=== PATIENT | female | born 1975 | race Caucasian/White ===

== ENCOUNTER → 2016-11-09 | Outpatient (CLI) | payer OTHER ==
[2016-11-09 15:44] VITALS: BP 139/79; PULSE 85; TEMP 97.9; BMI 32.2
--- NOTE | 2016-11-09 16:20 | P.HPBAR ---
Bariatric H&P - History & Physicial H&P Date: 11/09/16 History & Physicial: Visit/CC: lap band refill Patient initial contact: Initial weight: Initial weight in pounds: Height: 4 ft 11.75 in Initial BMI: Last weight: Current weight: 74.208 kg Current weight in pounds: 163.60 Current BMI: 32.2 [place] body weight (based on NIH guidelines): 44.792 kg Excess body weight loss: The patient is a 40 year-old F who presents for Bariatric Assessment. Patient has safer LAP-BAND follow-up. She has not been seen in several years. She has complaints of GERD. She is actually scheduled to go to [facility] in 2 weeks. Past Medical History Past Medical History: Thyroid Disorder History of Any Multi-Drug Resistant Organisms: None Reported Past Surgical History: Bariatric Surgery Additional Past Surgical History / Comment(s): lap band placed June [id number], Past Anesthesia/Blood Transfusion Reactions: No Reported Reaction Additional Past Anesthesia/Blood Transfusion Reaction / Comm: No transfusions reported as of 11/09/16 Past Psychological History: No Psychological Hx Reported Smoking Status: Never smoker Past Alcohol Use History: Occasional Additional Past Alcohol Use History / Comment(s): once/week at most Past Drug Use History: None Reported - Past Family History Father Family Medical History: Coronary Artery Disease (CAD), Diabetes Mellitus Additional Family Medical History / Comment(s): type 2 DM, cardiac stent placement Mother Family Medical History: Hypertension Surgical - Exam Vital Signs Temp Pulse BP 97.9 F 85 139/79 11/09/16 15:35 11/09/16 15:35 11/09/16 15:35 - General well developed, no distress - Eyes PERRL - ENT normal pinna - Respiratory normal expansion - Cardiovascular Rhythm: regular - Abdomen Abdomen: soft, non tender Bariatric Assessment & Plan Plan: The patient's LAP-BAND was empty. She had 9.5 mL emptied from her LAP-BAND. She'll follow-up in several weeks after her trip to [facility]. She had no complaints of dysphagia after her band was empty. Bariatric Checklist Checklist: Plan: Checklist: EGD: 1. Hiatal hernia: 2. H. Pylori: HgbA1c: Vitamin D: Smoking: Never smoker Primary care physician referral: Psychiatry clearance: Cardiology clearance: Sleep study: Diet journal: VTE risk score: VTE risk level: Rehab needs at discharge:
== END | disposition home or self-care (01) ==
LOC: BARWHC3 14:41
PROVIDERS: ATTEND Surgery
DX: Z48.815 Encounter for surgical aftercare following surgery on the digestive system (principal); Z98.84 Bariatric surgery status; K21.9 Gastro-esophageal reflux disease without esophagitis; Z68.32 Body mass index [BMI] 32.0-32.9, adult
CPT/HCPCS: 99212

== ENCOUNTER → 2016-12-28 | Outpatient (CLI) | payer OTHER ==
[2016-12-28 15:45] VITALS: BP 128/80; PULSE 94; RESP 14; TEMP 98.5; BMI 31.9
--- NOTE | 2016-12-28 15:54 | P.HPBAR ---
Bariatric H&P - History & Physicial H&P Date: 12/28/16 History & Physicial: Visit/CC: band fill Patient initial contact: Initial weight: 102.512 kg Initial weight in pounds: 226.00 Height: 5 ft 1 in Initial BMI: 42.7 Last weight: Current weight: 76.702 kg Current weight in pounds: 169.10 Current BMI: 31.9 [place] body weight (based on NIH guidelines): 47.627 kg Excess body weight loss: 47.0% The patient is a 41 year-old F who presents for Bariatric Assessment. The patient is requesting a fill. She has gained 6 pounds since her LAP-BAND was emptied. She has recently traveled to [place]. Review of Systems Constitutional: Reports as per HPI Past Medical History Past Medical History: Thyroid Disorder History of Any Multi-Drug Resistant Organisms: None Reported Past Surgical History: Bariatric Surgery Additional Past Surgical History / Comment(s): lap band placed June 20112011, Past Anesthesia/Blood Transfusion Reactions: No Reported Reaction Additional Past Anesthesia/Blood Transfusion Reaction / Comm: No transfusions reported as of 11/09/16 Past Psychological History: No Psychological Hx Reported Smoking Status: Never smoker Past Alcohol Use History: Occasional Additional Past Alcohol Use History / Comment(s): once/week at most Past Drug Use History: None Reported - Past Family History Father Family Medical History: Coronary Artery Disease (CAD), Diabetes Mellitus Additional Family Medical History / Comment(s): type 2 DM, cardiac stent placement Mother Family Medical History: Hypertension Surgical - Exam Vital Signs Temp Pulse Resp BP 98.5 F 94 14 128/80 12/28/16 15:35 12/28/16 15:35 12/28/16 15:35 12/28/16 15:35 - General well developed, no distress - Eyes PERRL - ENT normal pinna - Neck no masses - Respiratory normal expansion - Cardiovascular Rhythm: regular - Abdomen Abdomen: soft, non tender Bariatric Assessment & Plan Plan: The patient's lap band was adjusted. She had 5 mL added to the band. She will follow-up in one month. Bariatric Checklist Checklist: Plan: Checklist: EGD: 1. Hiatal hernia: 2. H. Pylori: HgbA1c: Vitamin D: Smoking: Never smoker Primary care physician referral: madison burden Psychiatry clearance: Cardiology clearance: Sleep study: Diet journal: VTE risk score: VTE risk level: Rehab needs at discharge:
== END | disposition home or self-care (01) ==
LOC: BARWHC3 14:56
PROVIDERS: ATTEND Surgery
DX: Z48.815 Encounter for surgical aftercare following surgery on the digestive system (principal); Z98.84 Bariatric surgery status
CPT/HCPCS: 99212

== ENCOUNTER → 2017-05-26 | Outpatient (CLI) | payer OTHER ==
--- NOTE | 2017-05-27 09:58 | ECHOS ---
STRESS ECHOCARDIOGRAM INDICATIONS: Chest pain. MEDICATIONS:: Synthroid BASELINE HEART RATE: 86 BASELINE BLOOD PRESSURE: 104/58 MAXIMUM HEART RATE: 178 MAXIMUM BLOOD PRESSURE: 151/75 85% MPHR: 151 100% MPHR: 178 METS: 9.7 MAXIMUM STAGE REACHED: 3 TOTAL EXERCISE TIME: 8:00 CLINICAL INFORMATION: A 41-year-old female referred by Dr. Chairez for an exercise stress echo. History of chest discomfort. Baseline heart rate is 86 beats per minute. Baseline blood pressure 104/58 mmHg. Baseline 12-lead ECG shows normal sinus rhythm with subtle early repolarization abnormality in the high lateral leads. Patient exercised on a Babar protocol for 8 minutes achieving a peak heart rate of 178 beats per minute. Blood pressure response was normal. There was no definite ECG evidence for ischemia. Occasional premature beats are noted, both supraventricular and ventricular. No nonsustained or sustained arrhythmias. A baseline 2D echo showed normal LV systolic function without segmental wall motion abnormalities. At peak exercise, there was excellent augmentation of overall LV contractility without development of any wall motion abnormalities. At recovery lesion LV systolic function was normal. IMPRESSION: 1. Average exercise capacity. 2. No ECG or echocardiographic evidence of ischemia. MMODL / IJN: [id number] /
== END | disposition home or self-care (01) ==
LOC: RADNMMAIN 08:58
PROVIDERS: ATTEND Family Medicine
DX: R07.2 Precordial pain (principal)
CPT/HCPCS: 93017; 93350

== ENCOUNTER → 2018-09-12 | Outpatient (CLI) | payer BC, OTHER ==
[2018-09-12 16:05] VITALS: BP 125/90; PULSE 109; RESP 16; TEMP 99.1; BMI 38.1
--- NOTE | 2018-09-12 16:35 | P.HPBAR ---
Bariatric H&P - History & Physicial H&P Date: 09/12/18 History & Physicial: Visit/CC: band adj Patient initial contact: Initial weight: 102.512 kg Initial weight in pounds: 226.00 Height: 5 ft 1 in Initial BMI: 42.7 Last weight: Current weight: 91.626 kg Current weight in pounds: 202.00 Current BMI: 38.1 [place] body weight (based on NIH guidelines): 47.627 kg Excess body weight loss: 19.8% The patient is a 42 year-old F who presents for Bariatric Assessment. Patient resents today for lab band follow up. She's not been seen almost 2 years. She has diminished restriction. She is requesting a fill. Past Medical History Past Medical History: Thyroid Disorder History of Any Multi-Drug Resistant Organisms: None Reported Past Surgical History: Bariatric Surgery Additional Past Surgical History / Comment(s): lap band placed June 20112011, Past Anesthesia/Blood Transfusion Reactions: No Reported Reaction Additional Past Anesthesia/Blood Transfusion Reaction / Comm: No transfusions reported as of 11/09/16 Past Psychological History: No Psychological Hx Reported Smoking Status: Never smoker Past Alcohol Use History: Occasional Additional Past Alcohol Use History / Comment(s): once/week at most Past Drug Use History: None Reported - Past Family History Father Family Medical History: Coronary Artery Disease (CAD), Diabetes Mellitus Additional Family Medical History / Comment(s): type 2 DM, cardiac stent placement Mother Family Medical History: Hypertension Surgical - Exam Vital Signs Temp Pulse Resp BP 99.1 F 109 H 16 125/90 09/12/18 15:53 09/12/18 15:53 09/12/18 15:53 09/12/18 15:53 - General well developed, well nourished, no distress - Eyes PERRL - ENT normal pinna - Neck no masses - Respiratory normal expansion - Abdomen Abdomen: soft, non tender Bariatric Assessment & Plan Plan: The patient LAP-BAND was adjusted. She had 2 mL added to the band. She currently has 7 mL in the band. She will follow-up in 8 weeks. Bariatric Checklist Checklist: Plan: Checklist: EGD: 1. Hiatal hernia: 2. H. Pylori: HgbA1c: Vitamin D: Smoking: Never smoker Primary care physician referral: madison burden Psychiatry clearance: Cardiology clearance: Sleep study: Diet journal: VTE risk score: VTE risk level: Rehab needs at discharge:
== END | disposition home or self-care (01) ==
LOC: BARWHC3 15:05
PROVIDERS: ATTEND Surgery
DX: Z48.815 Encounter for surgical aftercare following surgery on the digestive system (principal); Z98.84 Bariatric surgery status
CPT/HCPCS: 99212

== ENCOUNTER → 2018-10-18 | Outpatient (CLI) | payer BC, OTHER ==
--- NOTE | 2018-10-18 12:51 | MM ---
Reason for exam: screening (asymptomatic). Last mammogram was performed 2 years and 11 months ago. History: Patient is nulliparous. Physical Findings: A clinical breast exam by your physician is recommended on an annual basis and results should be correlated with mammographic findings. MG Screening Mammo w CAD Bilateral CC and MLO view(s) were taken. Prior study comparison: November 18, 2015, bilateral MG screening mammo w CAD. The breast tissue is heterogeneously dense. This may lower the sensitivity of mammography. No significant changes when compared with prior studies. ASSESSMENT: Negative, BI-RAD 1 RECOMMENDATION: Routine screening mammogram of both breasts in 1 year.
== END | disposition home or self-care (01) ==
LOC: RADMAMWWP 06:48
PROVIDERS: ATTEND Family Medicine
DX: Z12.31 Encounter for screening mammogram for malignant neoplasm of breast (principal)
CPT/HCPCS: 77067

== ENCOUNTER → 2018-10-24 | Outpatient (CLI) | payer BC, OTHER ==
[2018-10-24 13:59] VITALS: BMI 37.0
[2018-10-24 14:16] VITALS: BP 136/91; PULSE 112; TEMP 98.6
--- NOTE | 2018-10-24 14:30 | P.HPBAR ---
Bariatric H&P - History & Physicial H&P Date: 10/24/18 History & Physicial: Visit/CC: band adj Patient initial contact: Initial weight: 102.512 kg Initial weight in pounds: 226.00 Height: 5 ft 1 in Initial BMI: 42.7 Last weight: Current weight: 88.904 kg Current weight in pounds: 196.00 Current BMI: 37.0 [place] body weight (based on NIH guidelines): 47.627 kg Excess body weight loss: 24.7% The patient is a 42 year-old F who presents for Bariatric Assessment. Of her LAP-BAND. She currently feels hungry. He has lost 6 pounds since her last visit. Past Medical History Past Medical History: Thyroid Disorder History of Any Multi-Drug Resistant Organisms: None Reported Past Surgical History: Bariatric Surgery Additional Past Surgical History / Comment(s): lap band placed June [id number], Past Anesthesia/Blood Transfusion Reactions: No Reported Reaction Additional Past Anesthesia/Blood Transfusion Reaction / Comm: No transfusions reported as of 11/09/16 Past Psychological History: No Psychological Hx Reported Smoking Status: Never smoker Past Alcohol Use History: Occasional Additional Past Alcohol Use History / Comment(s): once/week at most Past Drug Use History: None Reported - Past Family History Father Family Medical History: Coronary Artery Disease (CAD), Diabetes Mellitus Additional Family Medical History / Comment(s): type 2 DM, cardiac stent placement Mother Family Medical History: Hypertension Surgical - Exam Vital Signs Temp 98.0 F 10/24/18 13:56 - General well developed, well nourished, no distress - Eyes PERRL - ENT normal pinna - Neck no masses - Respiratory normal expansion - Cardiovascular Rhythm: regular - Abdomen Abdomen: soft, non tender Bariatric Assessment & Plan Plan: Patient's lap band was adjusted. She had 1 mL added to her band. She currently has 8 mL in the band. She was able to water without difficulty. She' ll follow-up in 4 weeks. Bariatric Checklist Checklist: Plan: Checklist: EGD: 1. Hiatal hernia: 2. H. Pylori: HgbA1c: Vitamin D: Smoking: Never smoker Primary care physician referral: madison burden Psychiatry clearance: Cardiology clearance: Sleep study: Diet journal: VTE risk score: VTE risk level: Rehab needs at discharge:
== END ==
LOC: BARWHC3 13:45
PROVIDERS: ATTEND Surgery
DX: Z48.815 Encounter for surgical aftercare following surgery on the digestive system (principal); Z98.84 Bariatric surgery status
CPT/HCPCS: 99212

== ENCOUNTER → 2019-01-16 | Outpatient (CLI) | payer BC, OTHER ==
[2019-01-16 16:30] VITALS: BP 132/90; PULSE 104; RESP 16; TEMP 98.3; BMI 36.1
--- NOTE | 2019-01-30 14:17 | P.HPBAR ---
Bariatric H&P - History & Physicial H&P Date: 01/16/19 History & Physicial: Visit/CC: Band Adj Patient initial contact: Initial weight: 102.512 kg Initial weight in pounds: 226.00 Height: 5 ft 1 in Initial BMI: 42.7 Last weight: Current weight: 86.636 kg Current weight in pounds: 191.00 Current BMI: 36.1 [place] body weight (based on NIH guidelines): 47.627 kg Excess body weight loss: 28.9% The patient is a 43 year-old F who presents for Bariatric Assessment. The patient is requesting a fill of her LAP-BAND. She currently feels hungry. Past Medical History Past Medical History: Thyroid Disorder History of Any Multi-Drug Resistant Organisms: None Reported Past Surgical History: Bariatric Surgery Additional Past Surgical History / Comment(s): lap band placed June 2011, Past Anesthesia/Blood Transfusion Reactions: No Reported Reaction Additional Past Anesthesia/Blood Transfusion Reaction / Comm: No transfusions reported as of 11/09/16 Smoking Status: Never smoker - Past Family History Father Family Medical History: Coronary Artery Disease (CAD), Diabetes Mellitus Additional Family Medical History / Comment(s): type 2 DM, cardiac stent placement Mother Family Medical History: Hypertension Surgical - Exam Vital Signs Temp Pulse Resp BP 98.3 F 104 H 16 132/90 01/16/19 16:24 01/16/19 16:24 01/16/19 16:24 01/16/19 16:24 - General well developed, well nourished, no distress - ENT normal pinna - Abdomen Abdomen: soft, non tender Bariatric Assessment & Plan Plan: Patient LAP-BAND was adjusted. She had 0.5 mL added to her LAP-BAND. She currently has a 0.5 mL in the band. She'll follow-up in 2 months. Bariatric Checklist Checklist: Plan: Checklist: EGD: 1. Hiatal hernia: 2. H. Pylori: HgbA1c: Vitamin D: Smoking: Never smoker Primary care physician referral: madison burden Psychiatry clearance: Cardiology clearance: Sleep study: Diet journal: VTE risk score: VTE risk level: Rehab needs at discharge:
== END | disposition home or self-care (01) ==
LOC: BARWHC3 16:01
PROVIDERS: ATTEND Surgery
DX: Z46.51 Encounter for fitting and adjustment of gastric lap band (principal)
CPT/HCPCS: 99212

== ENCOUNTER → 2019-02-13 | Outpatient (CLI) | payer BC, OTHER ==
[2019-02-13 14:29] VITALS: BP 119/96; PULSE 95; TEMP 98.9; BMI 36.1
--- NOTE | 2019-02-13 16:03 | P.HPBAR ---
Bariatric H&P - History & Physicial H&P Date: 02/13/19 History & Physicial: Visit/CC: sleeve f/u Patient initial contact: Initial weight: 102.512 kg Initial weight in pounds: 226.00 Height: 5 ft 1 in Initial BMI: 42.7 Last weight: Current weight: 86.682 kg Current weight in pounds: 191.10 Current BMI: 36.1 [place] body weight (based on NIH guidelines): 47.627 kg Excess body weight loss: 28.8% The patient is a 43 year-old F who presents for Bariatric Assessment. The patient presents today for sleeve gastrectomy follow-up. She states she's had some mild GERD. Past Medical History Past Medical History: Thyroid Disorder History of Any Multi-Drug Resistant Organisms: None Reported Past Surgical History: Bariatric Surgery Additional Past Surgical History / Comment(s): lap band placed June 2011, Past Anesthesia/Blood Transfusion Reactions: No Reported Reaction Additional Past Anesthesia/Blood Transfusion Reaction / Comm: No transfusions reported as of 11/09/16 Smoking Status: Never smoker - Past Family History Father Family Medical History: Coronary Artery Disease (CAD), Diabetes Mellitus Additional Family Medical History / Comment(s): type 2 DM, cardiac stent placement Mother Family Medical History: Hypertension Surgical - Exam Vital Signs Temp Pulse BP 98.9 F 95 119/96 02/13/19 13:59 02/13/19 13:59 02/13/19 13:59 - General well developed, well nourished, no distress, moderate distress - Eyes PERRL, normal ocular movement - Abdomen Abdomen: soft, non tender Bariatric Assessment & Plan Plan: Patient maintained excellent weight loss. Her GERD we'll be treated with Prilosec. She will follow-up in 6 weeks. Bariatric Checklist Checklist: Plan: Checklist: EGD: 1. Hiatal hernia: 2. H. Pylori: HgbA1c: Vitamin D: Smoking: Never smoker Primary care physician referral: madison burden Psychiatry clearance: Cardiology clearance: Sleep study: Diet journal: VTE risk score: VTE risk level: Rehab needs at discharge:
== END | disposition home or self-care (01) ==
LOC: BARWHC3 13:21
PROVIDERS: ATTEND Surgery
DX: Z09 Encounter for follow-up examination after completed treatment for conditions other than malignant neoplasm (principal); K21.9 Gastro-esophageal reflux disease without esophagitis; Z98.84 Bariatric surgery status
CPT/HCPCS: 99211

== ENCOUNTER → 2020-03-25 | Outpatient (CLI) | payer BC, OTHER ==
[2020-03-25 13:07] VITALS: BP 139/104; PULSE 75; RESP 16; TEMP 98.2; BMI 34.0
--- NOTE | 2020-03-25 13:47 | P.HPBAR ---
Bariatric H&P - History & Physicial H&P Date: 03/25/20 History & Physicial: Visit/CC: Band f/u Patient initial contact: Initial weight: 102.512 kg Initial weight in pounds: 226.00 Height: 5 ft 1 in Initial BMI: 42.7 Last weight: Current weight: 81.76 kg Current weight in pounds: 180.25 Current BMI: 34.0 [place] body weight (based on NIH guidelines): 47.627 kg Excess body weight loss: 37.8% The patient is a 44 year-old F who presents for Bariatric Assessment. Patient presents today for lab band follow. She has some complaints of right quadrant epigastric pain. She denies any dysphagia or GERD. Past Medical History Past Medical History: Thyroid Disorder History of Any Multi-Drug Resistant Organisms: None Reported Past Surgical History: Bariatric Surgery Additional Past Surgical History / Comment(s): lap band placed June 2011, Past Anesthesia/Blood Transfusion Reactions: No Reported Reaction Additional Past Anesthesia/Blood Transfusion Reaction / Comm: No transfusions reported as of 11/09/16 Past Psychological History: No Psychological Hx Reported Smoking Status: Unknown if ever smoked Past Alcohol Use History: Occasional Additional Past Alcohol Use History / Comment(s): once/week at most Past Drug Use History: None Reported - Past Family History Father Family Medical History: Coronary Artery Disease (CAD), Diabetes Mellitus Additional Family Medical History / Comment(s): type 2 DM, cardiac stent placement Mother Family Medical History: Hypertension Surgical - Exam Vital Signs Temp Pulse Resp BP 98.2 F 75 16 139/104 03/25/20 13:05 03/25/20 13:05 03/25/20 13:05 03/25/20 13:05 - General well developed, well nourished, no distress - Eyes PERRL - ENT normal pinna - Neck no masses - Respiratory normal expansion - Cardiovascular Rhythm: regular - Abdomen Abdomen: soft, non tender Bariatric Assessment & Plan Plan: Right quadrant epigastric pain. Patient be scheduled for EGD tonight for possible gastritis or esophagitis. She also scheduled for an ultrasound to cholchanning. HIDA scan with ejection fraction has also been ordered. She'll follow-up in 4 weeks. Bariatric Checklist Checklist: Plan: Checklist: EGD: 1. Hiatal hernia: 2. H. Pylori: HgbA1c: Vitamin D: Smoking: Never smoker Primary care physician referral: madison burden Psychiatry clearance: Cardiology clearance: Sleep study: Diet journal: VTE risk score: VTE risk level: Rehab needs at discharge:
== END | disposition home or self-care (01) ==
LOC: BARWHC3 12:47
PROVIDERS: ATTEND Surgery
DX: Z48.815 Encounter for surgical aftercare following surgery on the digestive system (principal)
CPT/HCPCS: 99211

== ENCOUNTER → 2020-04-17 | Outpatient (CLI) | payer BC, OTHER ==
--- NOTE | 2020-04-19 09:21 | MM ---
Reason for exam: screening (asymptomatic). Last mammogram was performed 1 year and 6 months ago. History: Patient is nulliparous. Physical Findings: A clinical breast exam by your physician is recommended on an annual basis and results should be correlated with mammographic findings. MG 3D Screening Mammo W/Cad Bilateral CC and MLO view(s) were taken. Prior study comparison: October 18, 2018, bilateral MG screening mammo w CAD. November 18, 2015, bilateral MG screening mammo w CAD. The breast tissue is heterogeneously dense. This may lower the sensitivity of mammography. New dystrophic calcifications right upper outer quadrant. No significant changes when compared with prior studies. ASSESSMENT: Benign, BI-RAD 2 RECOMMENDATION: Routine screening mammogram of both breasts in 1 year.
== END | disposition home or self-care (01) ==
LOC: RADMAMWWP 15:43
PROVIDERS: ATTEND Family Medicine
DX: Z12.31 Encounter for screening mammogram for malignant neoplasm of breast (principal)
CPT/HCPCS: 77063; 77067

== ENCOUNTER 2020-04-18 09:23 | Day surgery (SDC) | payer BC, OTHER ==
[2020-04-15 16:04] VITALS: BMI 35.9
[~2020-04-18 09:23] MED LIST: LACTATED RINGERS 1,000 ML IV SCH
[2020-04-18 09:53] VITALS: RESP 16; TEMP 97.8
[2020-04-18] MEDS ORDERED: GLYCOPYRROLATE 0.2 MG/ML 2 ML VIAL ONE (10:25)
[2020-04-18] MEDS ORDERED: LIDOCAINE 1% INJ 10MG/ML (20 ML MDV) ONE (10:25)
[2020-04-18] MEDS ORDERED: PROPOFOL 10 MG/ML 20 ML VIAL IV ONE (10:25)
--- NOTE | 2020-04-18 10:29 | P.GSHP ---
History of Present Illness H&P Date: 04/18/20 Chief Complaint: GERD This a 44-year-old female presents today for EGD. She's had issues with GERD. Past Medical History Past Medical History: Thyroid Disorder History of Any Multi-Drug Resistant Organisms: None Reported Past Surgical History: Bariatric Surgery Additional Past Surgical History / Comment(s): Lap band. Past Anesthesia/Blood Transfusion Reactions: Motion Sickness Additional Past Anesthesia/Blood Transfusion Reaction / Comment(s): No transfusions. Past Psychological History: No Psychological Hx Reported Smoking Status: Never smoker Past Alcohol Use History: Occasional Past Drug Use History: None Reported - Past Family History Father Family Medical History: Coronary Artery Disease (CAD), Diabetes Mellitus Additional Family Medical History / Comment(s): type 2 DM, cardiac stent placement Mother Family Medical History: Hypertension Medications and Allergies Home Medications Medication Instructions Recorded Confirmed Type No Known Home Medications 04/15/20 04/18/20 History Allergies Allergy/AdvReac Type Severity Reaction Status Date / Time No Known Allergies Allergy Verified 04/18/20 09:53 Surgical - Exam Vital Signs Temp Pulse Resp BP Pulse Ox 97.8 F 85 16 118/82 96 04/18/20 09:52 04/18/20 09:52 04/18/20 09:52 04/18/20 09:52 04/18/20 09:52 - General well developed, well nourished, no distress - Eyes PERRL - ENT normal pinna - Neck no masses - Respiratory normal expansion - Cardiovascular Rhythm: regular - Abdomen Abdomen: soft, non tender Assessment and Plan Assessment: GERD. We'll perform EGD
--- NOTE | 2020-04-18 10:35 | P.OP ---
Date of Procedure: 04/18/20 Preoperative Diagnosis: GERD Postoperative Diagnosis: Antral gastritis Procedure(s) Performed: EGD Anesthesia: MAC Surgeon: Onel Lynn Pathology: other (Antrum) Condition: stable Disposition: PACU Description of Procedure: The patient's placed on the endoscopy table lateral position. She received IV sedation. The gastric placed oropharynx past esophagus the first and second portion of the duodenum appeared normal. Scope was then brought back the antrum and this was mildly inflamed. A biopsies performed. Scope was then retroflexed and the remainder of the stomach appeared normal. Patient previous Jose device this was without evidence of infection erosion. The GE junction was at 40 cm the distal esophagus appeared normal. The proximal esophagus appeared normal. Scope was withdrawn for patient.
[2020-04-18 10:55] VITALS: BP 102/70; PULSE 89
== END 2020-04-18 11:15 | disposition home or self-care (01) ==
LOC: ORWHC2ENDO 09:23
PROVIDERS: ATTEND Surgery
DX: K29.70 Gastritis, unspecified, without bleeding (principal); E07.9 Disorder of thyroid, unspecified; Z98.84 Bariatric surgery status; Z82.49 Family history of ischemic heart disease and other diseases of the circulatory system; Z83.3 Family history of diabetes mellitus; Z95.5 Presence of coronary angioplasty implant and graft
CPT/HCPCS: 81025; 88305; 43239; J2001; J2704

== ENCOUNTER → 2020-04-22 | Outpatient (CLI) | payer BC, OTHER ==
[2020-04-22 13:12] VITALS: BP 104/75; PULSE 74; RESP 18; TEMP 98.2; BMI 33.8
--- NOTE | 2020-04-22 14:34 | P.HPBAR ---
Bariatric H&P - History & Physicial H&P Date: 04/22/20 History & Physicial: Visit/CC: lap band f/u Patient initial contact: Initial weight: 102.512 kg Initial weight in pounds: 226.00 Height: 5 ft 1 in Initial BMI: 42.7 Last weight: Current weight: 81.193 kg Current weight in pounds: 179.00 Current BMI: 33.8 [place] body weight (based on NIH guidelines): 47.627 kg Excess body weight loss: 38.8% The patient is a 44 year-old F who presents for Bariatric Assessment. Patient presents today for LAP-BAND follow-up. She is currently hungry. She is requesting a fill of her LAP-BAND. Past Medical History Past Medical History: Thyroid Disorder History of Any Multi-Drug Resistant Organisms: None Reported Past Surgical History: Bariatric Surgery Additional Past Surgical History / Comment(s): Lap band; scope March 2020 Past Anesthesia/Blood Transfusion Reactions: Motion Sickness Additional Past Anesthesia/Blood Transfusion Reaction / Comm: No transfusions. Past Psychological History: No Psychological Hx Reported Smoking Status: Never smoker Past Alcohol Use History: Occasional Additional Past Alcohol Use History / Comment(s): once/week at most Past Drug Use History: None Reported - Past Family History Father Family Medical History: Coronary Artery Disease (CAD), Diabetes Mellitus Additional Family Medical History / Comment(s): type 2 DM, cardiac stent placement Mother Family Medical History: Hypertension Surgical - Exam Vital Signs Temp Pulse Resp BP Pulse Ox 98.2 F 74 18 104/75 97 04/22/20 13:04 04/22/20 13:04 04/22/20 13:04 04/22/20 13:04 04/22/20 13:04 - General well developed, well nourished, no distress - Eyes PERRL - ENT normal pinna - Neck no masses - Respiratory normal expansion - Cardiovascular Rhythm: regular - Abdomen Abdomen: soft, non tender Bariatric Assessment & Plan Plan: Patient's lap band was adjusted. She had 0.5 mL added to the band. She will follow-up in 4 weeks. She currently has 9 mL in the band. Bariatric Checklist Checklist: Plan: Checklist: EGD: 1. Hiatal hernia: 2. H. Pylori: HgbA1c: Vitamin D: Smoking: Never smoker Primary care physician referral: madison burden Psychiatry clearance: Cardiology clearance: Sleep study: Diet journal: VTE risk score: VTE risk level: Rehab needs at discharge:
== END | disposition home or self-care (01) ==
LOC: BARWHC3 12:51
PROVIDERS: ATTEND Surgery
DX: Z46.51 Encounter for fitting and adjustment of gastric lap band (principal)
CPT/HCPCS: 99212

== ENCOUNTER → 2020-05-20 | Outpatient (CLI) | payer BC ==
[2020-05-20 13:31] VITALS: BP 131/91; PULSE 84; RESP 16; TEMP 98.6; BMI 32.3
--- NOTE | 2020-05-20 13:54 | P.HPBAR ---
Bariatric H&P - History & Physicial H&P Date: 05/20/20 History & Physicial: Visit/CC: band f/u Patient initial contact: Initial weight: 102.512 kg Initial weight in pounds: 226.00 Height: 5 ft 1 in Initial BMI: 42.7 Last weight: Current weight: 77.564 kg Current weight in pounds: 171.00 Current BMI: 32.3 [place] body weight (based on NIH guidelines): 47.627 kg Excess body weight loss: 45.4% The patient is a 44 year-old F who presents for Bariatric Assessment. Patient presents for lap band follow up. She had a fill last month. She's on 8 pounds since her last adjustment. She has some mild GERD. Past Medical History Past Medical History: Thyroid Disorder History of Any Multi-Drug Resistant Organisms: None Reported Past Surgical History: Bariatric Surgery Additional Past Surgical History / Comment(s): Lap band; scope March 2020 Past Anesthesia/Blood Transfusion Reactions: Motion Sickness Additional Past Anesthesia/Blood Transfusion Reaction / Comm: No transfusions. Smoking Status: Never smoker - Past Family History Father Family Medical History: Coronary Artery Disease (CAD), Diabetes Mellitus Additional Family Medical History / Comment(s): type 2 DM, cardiac stent placement Mother Family Medical History: Hypertension Surgical - Exam Vital Signs Temp Pulse Resp BP 98.6 F 84 16 131/91 05/20/20 13:29 05/20/20 13:29 05/20/20 13:29 05/20/20 13:29 - General well developed, well nourished, no distress - Eyes PERRL - ENT normal pinna - Neck no masses - Respiratory normal expansion - Cardiovascular Rhythm: regular - Abdomen Abdomen: soft, non tender Bariatric Assessment & Plan Plan: Status post lap band procedure. Patient's GERD is minimal observed. Her band was not adjusted. She appears to be in the green zone. She'll follow-up in 8 weeks. Bariatric Checklist Checklist: Plan: Checklist: EGD: 1. Hiatal hernia: 2. H. Pylori: HgbA1c: Vitamin D: Smoking: Never smoker Primary care physician referral: madison burden Psychiatry clearance: Cardiology clearance: Sleep study: Diet journal: VTE risk score: VTE risk level: Rehab needs at discharge:
== END | disposition home or self-care (01) ==
LOC: BARWHC3 12:55
PROVIDERS: ATTEND Surgery
DX: Z46.51 Encounter for fitting and adjustment of gastric lap band (principal); K21.9 Gastro-esophageal reflux disease without esophagitis; Z98.84 Bariatric surgery status
CPT/HCPCS: 99211

== ENCOUNTER 2020-07-05 07:27 | Day surgery (SDC) | payer BC ==
[2020-07-03 13:51] VITALS: BMI 32.5
[2020-07-05 07:48] VITALS: TEMP 97.3
[2020-07-05] MEDS ORDERED: LIDOCAINE 1% (10MG/ML) FOR IV START INTRADERMA ONE (07:50)
[2020-07-05] MEDS ORDERED: PROPOFOL 10 MG/ML 20 ML VIAL IV ONE (08:25)
--- NOTE | 2020-07-05 08:28 | P.GSHP ---
History of Present Illness H&P Date: 07/05/20 Chief Complaint: Constipation 44-year-old female who presents today for colonoscopy. Patient has had problems with constipation.. Past Medical History Past Medical History: Thyroid Disorder Additional Past Medical History / Comment(s): constipation History of Any Multi-Drug Resistant Organisms: None Reported Past Surgical History: Bariatric Surgery Additional Past Surgical History / Comment(s): Lap band; scope March 2020 Past Anesthesia/Blood Transfusion Reactions: No Reported Reaction, Motion Sickness Additional Past Anesthesia/Blood Transfusion Reaction / Comment(s): No transfusions. Past Psychological History: No Psychological Hx Reported Smoking Status: Never smoker Past Alcohol Use History: Occasional Additional Past Alcohol Use History / Comment(s): once/week at most Past Drug Use History: None Reported - Past Family History Father Family Medical History: Coronary Artery Disease (CAD), Diabetes Mellitus Additional Family Medical History / Comment(s): type 2 DM, cardiac stent placement Mother Family Medical History: Hypertension Medications and Allergies Home Medications Medication Instructions Recorded Confirmed Type No Known Home Medications 04/15/20 07/03/20 History Allergies Allergy/AdvReac Type Severity Reaction Status Date / Time No Known Allergies Allergy Verified 07/03/20 13:47 Surgical - Exam Vital Signs Temp Pulse Resp BP Pulse Ox 97.3 F L 95 20 133/87 96 07/05/20 07:46 07/05/20 07:46 07/05/20 07:46 07/05/20 07:46 07/05/20 07:46 - General well developed, well nourished, no distress - Eyes PERRL - ENT normal pinna - Neck no masses - Respiratory normal expansion - Cardiovascular Rhythm: regular - Abdomen Abdomen: soft, non tender Assessment and Plan Assessment: This request patient. We'll perform colonoscopy
--- NOTE | 2020-07-05 08:44 | P.OP ---
Date of Procedure: 07/05/20 Preoperative Diagnosis: Constipation Postoperative Diagnosis: Normal colon Procedure(s) Performed: Colonoscopy Anesthesia: MAC Surgeon: Onel Lynn Pathology: none sent Condition: stable Disposition: PACU Description of Procedure: PROCEDURE: The patient was placed on the endoscopy table in the lateral position. Digital rectal examination was performed which revealed no abnormalities. . Flexible colonoscope was then placed in the patient's anus and passed throughout the entire colon. The ileocecal valve was visualized. The cecum, ascending, transverse, descending and sigmoid colon were normal. The rectum was normal as well. There were no masses, polyps or diverticula noted in the entire colon. SUMMARY OF FINDINGS: Normal colonoscopy.
[2020-07-05 08:48] VITALS: RESP 16
[2020-07-05 08:59] VITALS: BP 112/77; PULSE 76
== END 2020-07-05 10:17 | disposition home or self-care (01) ==
LOC: ORWHC2ENDO 07:27
PROVIDERS: ATTEND Surgery
DX: K59.00 Constipation, unspecified (principal); E07.9 Disorder of thyroid, unspecified; Z98.84 Bariatric surgery status; Z83.3 Family history of diabetes mellitus; Z82.49 Family history of ischemic heart disease and other diseases of the circulatory system; Z68.34 Body mass index [BMI] 34.0-34.9, adult
CPT/HCPCS: 81025; 45378; J2704

== ENCOUNTER → 2020-07-15 | Outpatient (CLI) | payer BC ==
[2020-07-15 13:24] VITALS: BP 122/79; PULSE 83; RESP 16; TEMP 98.7; BMI 30.4
--- NOTE | 2020-07-15 14:18 | P.HPBAR ---
Bariatric H&P - History & Physicial H&P Date: 07/15/20 History & Physicial: Visit/CC: band f/u Patient initial contact: Initial weight: 102.512 kg Initial weight in pounds: 226.00 Height: 5 ft 1 in Initial BMI: 42.7 Last weight: Current weight: 73.028 kg Current weight in pounds: 161.00 Current BMI: 30.4 [place] body weight (based on NIH guidelines): 47.627 kg Excess body weight loss: 53.7% The patient is a 44 year-old F who presents for Bariatric Assessment. Patient presents today for lap band follow up. She's had some minimal GERD. She feels well otherwise. Past Medical History Past Medical History: Thyroid Disorder Additional Past Medical History / Comment(s): constipation History of Any Multi-Drug Resistant Organisms: None Reported Past Surgical History: Bariatric Surgery Additional Past Surgical History / Comment(s): Lap band; scope March 2020 Past Anesthesia/Blood Transfusion Reactions: No Reported Reaction, Motion Sickness Additional Past Anesthesia/Blood Transfusion Reaction / Comm: No transfusions. Smoking Status: Never smoker - Past Family History Father Family Medical History: Coronary Artery Disease (CAD), Diabetes Mellitus Additional Family Medical History / Comment(s): type 2 DM, cardiac stent placement Mother Family Medical History: Hypertension Surgical - Exam Vital Signs Temp Pulse Resp BP 98.7 F 83 16 122/79 07/15/20 13:20 07/15/20 13:20 07/15/20 13:20 07/15/20 13:20 - General well developed, well nourished, no distress - Eyes PERRL - ENT normal pinna - Neck no masses - Respiratory normal expansion - Cardiovascular Rhythm: regular - Abdomen Abdomen: soft, non tender Bariatric Assessment & Plan Plan: Status post lap band. Patient's girth is minimal be observed. She is an excellent weight loss. She'll follow-up in 4 weeks. Bariatric Checklist Checklist: Plan: Checklist: EGD: 1. Hiatal hernia: 2. H. Pylori: HgbA1c: Vitamin D: Smoking: Never smoker Primary care physician referral: madison burden Psychiatry clearance: Cardiology clearance: Sleep study: Diet journal: VTE risk score: VTE risk level: Rehab needs at discharge:
== END | disposition home or self-care (01) ==
LOC: BARWHC3 12:47
PROVIDERS: ATTEND Surgery
DX: Z48.815 Encounter for surgical aftercare following surgery on the digestive system (principal)
CPT/HCPCS: 99211

== ENCOUNTER → 2020-09-09 | Outpatient (CLI) | payer BC ==
[2020-09-09 15:10] VITALS: BP 127/77; PULSE 67; RESP 18; TEMP 97.9; BMI 30.4
--- NOTE | 2020-09-10 10:12 | P.HPBAR ---
Bariatric H&P - History & Physicial H&P Date: 09/09/20 History & Physicial: Visit/CC: follow up / band adjustment Patient initial contact: Initial weight: 102.512 kg Initial weight in pounds: 226.00 Height: 5 ft 1 in Initial BMI: 42.7 Last weight: Current weight: 73.028 kg Current weight in pounds: 161.00 Current BMI: 30.4 [place] body weight (based on NIH guidelines): 47.627 kg Excess body weight loss: 53.7% The patient is a 44 year-old F who presents for Bariatric Assessment. Patient rents today for LAP-BAND follow-up.. She's had some mild GERD. Her weight is stable. Past Medical History Past Medical History: Thyroid Disorder Additional Past Medical History / Comment(s): constipation History of Any Multi-Drug Resistant Organisms: None Reported Past Surgical History: Bariatric Surgery Additional Past Surgical History / Comment(s): Lap band; scope March 2020 Past Anesthesia/Blood Transfusion Reactions: No Reported Reaction, Motion Sickness Additional Past Anesthesia/Blood Transfusion Reaction / Comm: No transfusions. Past Psychological History: No Psychological Hx Reported Smoking Status: Never smoker Past Alcohol Use History: Occasional Additional Past Alcohol Use History / Comment(s): once/week at most Past Drug Use History: None Reported - Past Family History Father Family Medical History: Coronary Artery Disease (CAD), Diabetes Mellitus Additional Family Medical History / Comment(s): type 2 DM, cardiac stent placement Mother Family Medical History: Hypertension Surgical - Exam Vital Signs Temp Pulse Resp BP 97.9 F 67 18 127/77 09/09/20 15:06 09/09/20 15:06 09/09/20 15:06 09/09/20 15:06 - General well developed, well nourished, no distress - Eyes PERRL - ENT normal pinna - Neck no masses - Respiratory normal expansion - Cardiovascular Rhythm: regular - Abdomen Abdomen: soft, non tender, tender Bariatric Assessment & Plan Plan: Status post lap band procedure. Patient's weight is stable. Her GERD is mini mal O will be observed. She'll follow-up in 4 weeks. Bariatric Checklist Checklist: Plan: Checklist: EGD: 1. Hiatal hernia: 2. H. Pylori: HgbA1c: Vitamin D: Smoking: Never smoker Primary care physician referral: madison burden Psychiatry clearance: Cardiology clearance: Sleep study: Diet journal: VTE risk score: VTE risk level: Rehab needs at discharge:
== END | disposition home or self-care (01) ==
LOC: BARWHC3 14:13
PROVIDERS: ATTEND Surgery
DX: Z46.51 Encounter for fitting and adjustment of gastric lap band (principal); Z98.84 Bariatric surgery status
CPT/HCPCS: 99211

== ENCOUNTER → 2020-11-04 | Outpatient (CLI) | payer BC ==
--- NOTE | 2020-11-04 15:30 | P.HPBAR ---
Bariatric H&P - History & Physicial H&P Date: 11/04/20 History & Physicial: Visit/CC: follow up Patient initial contact: Initial weight: 102.512 kg Initial weight in pounds: 226.00 Height: 5 ft 1 in Initial BMI: 42.7 Last weight: Current weight: 70.307 kg Current weight in pounds: 155.00 Current BMI: 29.2 [place] body weight (based on NIH guidelines): 47.627 kg Excess body weight loss: 58.6% The patient is a 44 year-old F who presents for Bariatric Assessment. Patient presents today for laparoscopic band follow. She's had some mild GERD. She's loss 6 pounds since her last visit. visit. Past Medical History Past Medical History: Thyroid Disorder Additional Past Medical History / Comment(s): constipation History of Any Multi-Drug Resistant Organisms: None Reported Past Surgical History: Bariatric Surgery Additional Past Surgical History / Comment(s): Lap band; scope March 2020 Past Anesthesia/Blood Transfusion Reactions: No Reported Reaction, Motion Sickness Additional Past Anesthesia/Blood Transfusion Reaction / Comm: No transfusions. Past Psychological History: No Psychological Hx Reported Smoking Status: Never smoker Past Alcohol Use History: Occasional Additional Past Alcohol Use History / Comment(s): once/week at most Past Drug Use History: None Reported - Past Family History Father Family Medical History: Coronary Artery Disease (CAD), Diabetes Mellitus Additional Family Medical History / Comment(s): type 2 DM, cardiac stent placement Mother Family Medical History: Hypertension Surgical - Exam Vital Signs Temp Pulse Resp BP 98.3 F 102 H 18 145/88 11/04/20 14:29 11/04/20 14:29 11/04/20 14:29 11/04/20 14:29 - General well developed, well nourished, no distress - Eyes PERRL - ENT normal pinna - Neck no masses - Respiratory normal expansion - Cardiovascular Rhythm: regular - Abdomen Abdomen: soft, non tender Bariatric Assessment & Plan Plan: Resolving morbid obesity. Patient is minimal observed. Bariatric Checklist Checklist: Plan: Checklist: EGD: 1. Hiatal hernia: 2. H. Pylori: HgbA1c: Vitamin D: Smoking: Never smoker Primary care physician referral: madison burden Psychiatry clearance: Cardiology clearance: Sleep study: Diet journal: VTE risk score: VTE risk level: Rehab needs at discharge:
== END | disposition home or self-care (01) ==
CPT/HCPCS: 99211

== ENCOUNTER → 2020-12-30 | Outpatient (CLI) | payer BC ==
[2020-12-30 14:33] VITALS: BP 121/77; PULSE 81; TEMP 98.1; BMI 30.6
--- NOTE | 2020-12-30 14:40 | P.HPBAR ---
Bariatric H&P - History & Physicial H&P Date: 12/30/20 History & Physicial: Visit/CC: lap band follow up Patient initial contact: Initial weight: 102.512 kg Initial weight in pounds: 226.00 Height: 5 ft 1 in Initial BMI: 42.7 Last weight: Current weight: 73.482 kg Current weight in pounds: 162.00 Current BMI: 30.6 [place] body weight (based on NIH guidelines): 47.627 kg Excess body weight loss: 52.8% The patient is a 45 year-old F who presents for Bariatric Assessment. Patient presents today for LAP-BAND follow-up. She's feeling well. She's had mild GERD. She can she is in a good zone. Past Medical History Past Medical History: Thyroid Disorder Additional Past Medical History / Comment(s): constipation History of Any Multi-Drug Resistant Organisms: None Reported Past Surgical History: Bariatric Surgery Additional Past Surgical History / Comment(s): Lap band; scope March 2020 Past Anesthesia/Blood Transfusion Reactions: No Reported Reaction, Motion Sickness Additional Past Anesthesia/Blood Transfusion Reaction / Comm: No transfusions. Past Psychological History: No Psychological Hx Reported Smoking Status: Never smoker Past Alcohol Use History: Occasional Additional Past Alcohol Use History / Comment(s): once/week at most Past Drug Use History: None Reported - Past Family History Father Family Medical History: Coronary Artery Disease (CAD), Diabetes Mellitus Additional Family Medical History / Comment(s): type 2 DM, cardiac stent placement Mother Family Medical History: Hypertension Surgical - Exam Vital Signs Temp Pulse BP 98.1 F 81 121/77 12/30/20 14:28 12/30/20 14:28 12/30/20 14:28 - General well developed, well nourished, no distress - Eyes PERRL - ENT normal pinna - Neck no masses - Respiratory normal expansion - Cardiovascular Rhythm: regular - Abdomen Abdomen: soft, non tender Bariatric Assessment & Plan Plan: status post lap band procedure patient's girth is minimal reserve. She'll follow-up in 4 weeks. Bariatric Checklist Checklist: Plan: Checklist: EGD: 1. Hiatal hernia: 2. H. Pylori: HgbA1c: Vitamin D: Smoking: Never smoker Primary care physician referral: madison burden Psychiatry clearance: Cardiology clearance: Sleep study: Diet journal: VTE risk score: VTE risk level: Rehab needs at discharge:
== END ==
LOC: BARWHC3 13:48
PROVIDERS: ATTEND Surgery
DX: Z09 Encounter for follow-up examination after completed treatment for conditions other than malignant neoplasm (principal); K21.9 Gastro-esophageal reflux disease without esophagitis; Z98.84 Bariatric surgery status
CPT/HCPCS: 99211

== ENCOUNTER → 2021-03-10 | Outpatient (CLI) | payer BC ==
[2021-03-10 15:04] VITALS: BP 144/98; PULSE 70; RESP 18; TEMP 98; BMI 30.4
--- NOTE | 2021-03-10 16:03 | P.HPBAR ---
Bariatric H&P - History & Physicial H&P Date: 03/10/21 History & Physicial: Visit/CC: follow up Patient initial contact: Initial weight: 102.512 kg Initial weight in pounds: 226.00 Height: 5 ft 1 in Initial BMI: 42.7 Last weight: Current weight: 73.028 kg Current weight in pounds: 161.00 Current BMI: 30.4 [place] body weight (based on NIH guidelines): 47.627 kg Excess body weight loss: 53.7% The patient is a 45 year-old F who presents for Bariatric Assessment. Patient presents today for lab band follow. She states she is in the good zone. She's not resolve though. She has minimal GERD. Past Medical History Past Medical History: Thyroid Disorder Additional Past Medical History / Comment(s): constipation History of Any Multi-Drug Resistant Organisms: None Reported Past Surgical History: Bariatric Surgery Additional Past Surgical History / Comment(s): Lap band; scope March 2020 Past Anesthesia/Blood Transfusion Reactions: No Reported Reaction, Motion Sickness Additional Past Anesthesia/Blood Transfusion Reaction / Comm: No transfusions. Past Psychological History: No Psychological Hx Reported Smoking Status: Never smoker Past Alcohol Use History: Occasional Additional Past Alcohol Use History / Comment(s): once/week at most Past Drug Use History: None Reported - Past Family History Father Family Medical History: Coronary Artery Disease (CAD), Diabetes Mellitus Additional Family Medical History / Comment(s): type 2 DM, cardiac stent placement Mother Family Medical History: Hypertension Surgical - Exam Vital Signs Temp Pulse Resp BP 98 F 70 18 144/98 03/10/21 15:02 03/10/21 15:02 03/10/21 15:02 03/10/21 15:02 - General well developed, well nourished, no distress - Eyes PERRL - ENT normal pinna, normal mucosa - Neck no masses - Respiratory normal expansion - Cardiovascular Rhythm: regular - Abdomen Abdomen: soft, non tender Bariatric Assessment & Plan Plan: Patient's girth is minimal observed. She'll follow-up in 4 weeks. Bariatric Checklist Checklist: Plan: Checklist: EGD: 1. Hiatal hernia: 2. H. Pylori: HgbA1c: Vitamin D: Smoking: Never smoker Primary care physician referral: madison burden Psychiatry clearance: Cardiology clearance: Sleep study: Diet journal: VTE risk score: VTE risk level: Rehab needs at discharge:
== END ==
LOC: BARWHC3 14:39
PROVIDERS: ATTEND Surgery
DX: Z09 Encounter for follow-up examination after completed treatment for conditions other than malignant neoplasm (principal); K21.9 Gastro-esophageal reflux disease without esophagitis; Z98.84 Bariatric surgery status
CPT/HCPCS: 99211

== ENCOUNTER → 2021-04-28 | Outpatient (CLI) | payer BC ==
[2021-04-28 14:51] VITALS: BP 135/100; PULSE 105; TEMP 98.1; BMI 30.8
--- NOTE | 2021-05-27 10:18 | P.HPBAR ---
Bariatric H&P - History & Physicial H&P Date: 04/28/21 History & Physicial: Visit/CC: lap band follow up Patient initial contact: Initial weight: 102.512 kg Initial weight in pounds: 226.00 Height: 5 ft 1 in Initial BMI: 42.7 Last weight: Current weight: 73.936 kg Current weight in pounds: 163.00 Current BMI: 30.8 [place] body weight (based on NIH guidelines): 47.627 kg Excess body weight loss: 52.0% The patient is a 45 year-old F who presents for Bariatric Assessment. Patient presents today for LAP-BAND adjustment. She wishes to fill her band. She currently feels hungry. Past Medical History Past Medical History: Thyroid Disorder Additional Past Medical History / Comment(s): constipation History of Any Multi-Drug Resistant Organisms: None Reported Past Surgical History: Bariatric Surgery Additional Past Surgical History / Comment(s): Lap band; scope March 2020 Past Anesthesia/Blood Transfusion Reactions: No Reported Reaction, Motion Sickness Additional Past Anesthesia/Blood Transfusion Reaction / Comm: No transfusions. Past Psychological History: No Psychological Hx Reported Smoking Status: Never smoker Past Alcohol Use History: Occasional Additional Past Alcohol Use History / Comment(s): once/week at most Past Drug Use History: None Reported - Past Family History Father Family Medical History: Coronary Artery Disease (CAD), Diabetes Mellitus Additional Family Medical History / Comment(s): type 2 DM, cardiac stent placement Mother Family Medical History: Hypertension Surgical - Exam Vital Signs Temp Pulse BP 98.1 F 105 H 135/100 04/28/21 14:43 04/28/21 14:43 04/28/21 14:43 - Eyes PERRL - ENT normal pinna - Neck no masses - Respiratory normal expansion - Cardiovascular Rhythm: regular - Abdomen Abdomen: soft, non tender Bariatric Assessment & Plan Plan: Patient's lap was adjusted. She had 0.5 mL added to her band. She currently has 9.2 mL in the band. She'll follow-up in 4 weeks. Bariatric Checklist Checklist: Plan: Checklist: EGD: 1. Hiatal hernia: 2. H. Pylori: HgbA1c: Vitamin D: Smoking: Never smoker Primary care physician referral: madison burden Psychiatry clearance: Cardiology clearance: Sleep study: Diet journal: VTE risk score: VTE risk level: Rehab needs at discharge:
== END ==
LOC: BARWHC3 14:26
PROVIDERS: ATTEND Surgery
DX: E66.01 Morbid (severe) obesity due to excess calories (principal); Z46.51 Encounter for fitting and adjustment of gastric lap band
CPT/HCPCS: 99212

== ENCOUNTER → 2021-05-19 | Outpatient (CLI) | payer BC ==
[2021-05-19 15:42] VITALS: BP 133/95; PULSE 109; RESP 16; TEMP 98.6
--- NOTE | 2021-05-20 12:38 | P.HPBAR ---
Bariatric H&P - History & Physicial H&P Date: 05/19/21 History & Physicial: Visit/CC: band f/u Patient initial contact: Initial weight: 102.512 kg Initial weight in pounds: 226.00 Height: 5 ft 1 in Initial BMI: 42.7 Last weight: Current weight: 72.121 kg Current weight in pounds: 159.00 Current BMI: 30.0 [place] body weight (based on NIH guidelines): 47.627 kg Excess body weight loss: 55.3% The patient is a 45 year-old F who presents for Bariatric Assessment. Patient resents today for repair follow-up. She requested of fluid removed from her LAP-BAND. She's had some dysphagia. Past Medical History Past Medical History: Thyroid Disorder Additional Past Medical History / Comment(s): constipation History of Any Multi-Drug Resistant Organisms: None Reported Past Surgical History: Bariatric Surgery Additional Past Surgical History / Comment(s): Lap band; scope March 2020 Past Anesthesia/Blood Transfusion Reactions: No Reported Reaction, Motion Sickness Additional Past Anesthesia/Blood Transfusion Reaction / Comm: No transfusions. Past Psychological History: No Psychological Hx Reported Smoking Status: Never smoker Past Alcohol Use History: Occasional Additional Past Alcohol Use History / Comment(s): once/week at most Past Drug Use History: None Reported - Past Family History Father Family Medical History: Coronary Artery Disease (CAD), Diabetes Mellitus Additional Family Medical History / Comment(s): type 2 DM, cardiac stent placement Mother Family Medical History: Hypertension Surgical - Exam Vital Signs Temp Pulse Resp BP 98.6 F 109 H 16 133/95 05/19/21 15:39 05/19/21 15:39 05/19/21 15:39 05/19/21 15:39 - General well developed, well nourished, no distress - Eyes PERRL - Abdomen Abdomen: soft, non tender Bariatric Assessment & Plan Plan: Patient LAP-BAND was just appears she had 2 mL [place] pressure currently is 6.5 mL in the band. She'll follow-up in 4 weeks. Bariatric Checklist Checklist: Plan: Checklist: EGD: 1. Hiatal hernia: 2. H. Pylori: HgbA1c: Vitamin D: Smoking: Never smoker Primary care physician referral: madison burden Psychiatry clearance: Cardiology clearance: Sleep study: Diet journal: VTE risk score: VTE risk level: Rehab needs at discharge:
== END ==
LOC: BARWHC3 14:15
PROVIDERS: ATTEND Surgery
DX: Z46.51 Encounter for fitting and adjustment of gastric lap band (principal); R13.10 Dysphagia, unspecified
CPT/HCPCS: 99211

== ENCOUNTER → 2021-06-09 | Outpatient (CLI) | payer BC ==
[2021-06-09 14:21] VITALS: BP 112/88; PULSE 93; TEMP 98.2; BMI 30.8
--- NOTE | 2021-06-16 17:05 | P.HPBAR ---
Bariatric H&P - History & Physicial H&P Date: 06/09/21 History & Physicial: Visit/CC: lap band follow up Patient initial contact: Initial weight: 102.512 kg Initial weight in pounds: 226.00 Height: 5 ft 1 in Initial BMI: 42.7 Last weight: Current weight: 73.936 kg Current weight in pounds: 163.00 Current BMI: 30.8 [place] body weight (based on NIH guidelines): 47.627 kg Excess body weight loss: 52.0% The patient is a 45 year-old F who presents for Bariatric Assessment. Patient presents today for LAP-BAND follow-up. She requested fill her band. She currently feels hungry. Past Medical History Past Medical History: Thyroid Disorder Additional Past Medical History / Comment(s): constipation History of Any Multi-Drug Resistant Organisms: None Reported Past Surgical History: Bariatric Surgery Additional Past Surgical History / Comment(s): Lap band; scope March 2020 Past Anesthesia/Blood Transfusion Reactions: No Reported Reaction, Motion Sickness Additional Past Anesthesia/Blood Transfusion Reaction / Comm: No transfusions. Past Psychological History: No Psychological Hx Reported Smoking Status: Never smoker Past Alcohol Use History: Occasional Additional Past Alcohol Use History / Comment(s): once/week at most Past Drug Use History: None Reported - Past Family History Father Family Medical History: Coronary Artery Disease (CAD), Diabetes Mellitus Additional Family Medical History / Comment(s): type 2 DM, cardiac stent placement Mother Family Medical History: Hypertension Surgical - Exam Vital Signs Temp Pulse BP 98.2 F 93 112/88 06/09/21 14:17 06/09/21 14:17 06/09/21 14:17 - General well developed, well nourished, no distress - Eyes PERRL - ENT normal pinna - Neck no masses - Respiratory normal expansion - Cardiovascular Rhythm: regular - Abdomen Abdomen: soft, non tender Bariatric Assessment & Plan Plan: Resolving morbid obesity. Patient LAP-BAND was adjusted. She had 1 mL added to the band. She'll follow-up in 4 weeks. Bariatric Checklist Checklist: Plan: Checklist: EGD: 1. Hiatal hernia: 2. H. Pylori: HgbA1c: Vitamin D: Smoking: Never smoker Primary care physician referral: madison burden Psychiatry clearance: Cardiology clearance: Sleep study: Diet journal: VTE risk score: VTE risk level: Rehab needs at discharge:
== END ==
LOC: BARWHC3 13:25
PROVIDERS: ATTEND Surgery
DX: Z46.51 Encounter for fitting and adjustment of gastric lap band (principal); E66.01 Morbid (severe) obesity due to excess calories; Z68.30 Body mass index [BMI] 30.0-30.9, adult
CPT/HCPCS: 99212

== ENCOUNTER 2021-07-11 20:35 | Emergency (ER) | payer BC, OTHER ==
[2021-07-11 20:52] VITALS: TEMP 97.7
[2021-07-11] MEDS ORDERED: SODIUM CHLORIDE 0.9% 500 ML 500 ML IV STA (21:12)
[2021-07-11] MEDS ORDERED: ONDANSETRON 4 MG/2 ML VIAL IVP STA (21:12)
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
[2021-07-11 22:03] VITALS: BP 123/83; PULSE 73; RESP 16
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
== END 2021-07-11 23:08 | disposition home or self-care (01) ==
LOC: EC 20:35
DX: Z04.1 Encounter for examination and observation following transport accident (principal); R55 Syncope and collapse; E07.9 Disorder of thyroid, unspecified; Z98.84 Bariatric surgery status
CPT/HCPCS: 99284; 96374; 93005; 71046; J2405

== ENCOUNTER → 2021-07-21 | Outpatient (CLI) | payer BC ==
[2021-07-21 13:59] VITALS: BP 118/82; PULSE 103; RESP 18; TEMP 98.2; BMI 31.1
--- NOTE | 2021-08-18 17:02 | P.HPBAR ---
Bariatric H&P - History & Physicial H&P Date: 07/21/21 History & Physicial: Visit/CC: follow up / lap band Patient initial contact: Initial weight: 102.512 kg Initial weight in pounds: 226.00 Height: 5 ft 1 in Initial BMI: 42.7 Last weight: Current weight: 74.707 kg Current weight in pounds: 164.70 Current BMI: 31.[address] [place] body weight (based on NIH guidelines): 47.627 kg Excess body weight loss: 50.6% The patient is a 45 year-old F who presents for Bariatric Assessment. Patient presents today for LAP-BAND follow-up. The patient was involved in a recent on Lanoxin. She's had some minimal GERD. Past Medical History Past Medical History: Thyroid Disorder Additional Past Medical History / Comment(s): constipation History of Any Multi-Drug Resistant Organisms: None Reported Past Surgical History: Bariatric Surgery Additional Past Surgical History / Comment(s): Lap band; scope March 2020 Past Anesthesia/Blood Transfusion Reactions: No Reported Reaction, Motion Sickness Additional Past Anesthesia/Blood Transfusion Reaction / Comm: No transfusions. Past Psychological History: No Psychological Hx Reported Smoking Status: Never smoker Past Alcohol Use History: Occasional Additional Past Alcohol Use History / Comment(s): once/week at most Past Drug Use History: None Reported - Past Family History Father Family Medical History: Coronary Artery Disease (CAD), Diabetes Mellitus Additional Family Medical History / Comment(s): type 2 DM, cardiac stent placement Mother Family Medical History: Hypertension Surgical - Exam Vital Signs Temp Pulse Resp BP 98.2 F 103 H 18 118/82 07/21/21 13:55 07/21/21 13:55 07/21/21 13:55 07/21/21 13:55 - General well developed, well nourished, no distress - Eyes PERRL - ENT normal pinna - Neck no masses - Respiratory normal expansion - Cardiovascular Rhythm: regular - Abdomen Abdomen: soft, non tender Bariatric Assessment & Plan Plan: Patient will be observed. There is minimal and will be observed she has no significant abdominal pain. She'll follow-up in one month. Bariatric Checklist Checklist: Plan: Checklist: EGD: 1. Hiatal hernia: 2. H. Pylori: HgbA1c: Vitamin D: Smoking: Never smoker Primary care physician referral: madison burden Psychiatry clearance: Cardiology clearance: Sleep study: Diet journal: VTE risk score: VTE risk level: Rehab needs at discharge:
== END ==
LOC: BARWHC3 13:21
PROVIDERS: ATTEND Surgery
DX: Z09 Encounter for follow-up examination after completed treatment for conditions other than malignant neoplasm (principal); Z98.84 Bariatric surgery status
CPT/HCPCS: 99211

== ENCOUNTER → 2021-07-28 | Outpatient (CLI) | payer BC, OTHER ==
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
--- NOTE | 2021-07-31 08:06 | EEG ---
ELECTROENCEPHALOGRAM REPORT ADDENDUM: DATE OF SERVICE: 07/28/2021 EEG was again reviewed in detail. There is evidence of intermittent focal slowing and dysrhythmic theta and sharp waves seen in the left temporal region. This is suggestive of focal cortical neural dysfunction, with underlying cortical irritability and tendency for seizures. Consider neuro-imaging to rule out underlying structural abnormalilty and a prolonged EEG for further evaluation. MMODL / IJN: [id number] / [facility]
== END ==
LOC: NEUROMAIN 07:44
PROVIDERS: ATTEND Family Medicine
DX: R41.3 Other amnesia (principal)
CPT/HCPCS: 95816

== ENCOUNTER → 2021-08-05 | Outpatient (CLI) | payer BC, OTHER ==
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
== END | disposition home or self-care (01) ==
LOC: RADMRIMAIN 16:51
PROVIDERS: ATTEND Family Medicine
DX: S09.90XA Unspecified injury of head, initial encounter (principal); R11.10 Vomiting, unspecified; V89.2XXA Person injured in unspecified motor-vehicle accident, traffic, initial encounter
CPT/HCPCS: 70551

== ENCOUNTER → 2021-09-08 | Outpatient (CLI) | payer BC, OTHER ==
[2021-09-08 14:00] VITALS: BP 121/80; PULSE 107; RESP 18; TEMP 98; BMI 30.8
--- NOTE | 2021-09-09 10:09 | P.HPBAR ---
Bariatric H&P - History & Physicial H&P Date: 09/09/21 History & Physicial: Visit/CC: follow up Patient initial contact: Initial weight: 102.512 kg Initial weight in pounds: 226.00 Height: 5 ft 1 in Initial BMI: 42.7 Last weight: Current weight: 73.936 kg Current weight in pounds: 163.00 Current BMI: 30.8 [place] body weight (based on NIH guidelines): 47.627 kg Excess body weight loss: 52.0% The patient is a 45 year-old F who presents for Bariatric Assessment. Patient presents today for bariatric follow. She has mild GERD. She does not think she needs a fill. She is undergoing seizure workup Past Medical History Past Medical History: Thyroid Disorder Additional Past Medical History / Comment(s): constipation History of Any Multi-Drug Resistant Organisms: None Reported Past Surgical History: Bariatric Surgery Additional Past Surgical History / Comment(s): Lap band; scope March 2020 Past Anesthesia/Blood Transfusion Reactions: No Reported Reaction, Motion Sickness Additional Past Anesthesia/Blood Transfusion Reaction / Comm: No transfusions. Past Psychological History: No Psychological Hx Reported Smoking Status: Never smoker Past Alcohol Use History: Occasional Additional Past Alcohol Use History / Comment(s): once/week at most Past Drug Use History: None Reported - Past Family History Father Family Medical History: Coronary Artery Disease (CAD), Diabetes Mellitus Additional Family Medical History / Comment(s): type 2 DM, cardiac stent placement Mother Family Medical History: Hypertension Surgical - Exam Vital Signs Temp Pulse Resp BP 98 F 107 H 18 121/80 09/08/21 13:55 09/08/21 13:55 09/08/21 13:55 09/08/21 13:55 - General well developed, well nourished, no distress - Eyes PERRL - ENT normal pinna - Neck no masses - Respiratory normal expansion - Cardiovascular Rhythm: regular - Abdomen Abdomen: soft, non tender Bariatric Checklist Checklist: Plan: Checklist: EGD: 1. Hiatal hernia: 2. H. Pylori: HgbA1c: Vitamin D: Smoking: Never smoker Primary care physician referral: madison burden Psychiatry clearance: Cardiology clearance: Sleep study: Diet journal: VTE risk score: VTE risk level: Rehab needs at discharge:
== END ==
LOC: BARWHC3 13:29
PROVIDERS: ATTEND Surgery
DX: Z09 Encounter for follow-up examination after completed treatment for conditions other than malignant neoplasm (principal); K21.9 Gastro-esophageal reflux disease without esophagitis; Z98.84 Bariatric surgery status
CPT/HCPCS: 99211

== ENCOUNTER → 2021-11-03 | Outpatient (CLI) | payer BC, OTHER ==
[2021-11-03 13:51] VITALS: BP 141/88; PULSE 77; RESP 16; TEMP 98; BMI 30.9
--- NOTE | 2021-11-03 15:51 | P.HPBAR ---
Bariatric H&P - History & Physicial H&P Date: 11/03/21 History & Physicial: Visit/CC: Band 2010 Patient initial contact: Initial weight: 102.512 kg Initial weight in pounds: 226.00 Height: 5 ft 1 in Initial BMI: 42.7 Last weight: Current weight: 74.389 kg Current weight in pounds: 164.00 Current BMI: 30.9 [place] body weight (based on NIH guidelines): 47.627 kg Excess body weight loss: 51.2% The patient is a 45 year-old F who presents for Bariatric Assessment. She presents today for LAP-BAND follow-up. She states that she thinks she is in a good thrill level. She's had very minimal GERD. Past Medical History Past Medical History: Thyroid Disorder Additional Past Medical History / Comment(s): constipation History of Any Multi-Drug Resistant Organisms: None Reported Past Surgical History: Bariatric Surgery Additional Past Surgical History / Comment(s): Lap band; scope March 2020 Past Anesthesia/Blood Transfusion Reactions: No Reported Reaction, Motion Sickness Additional Past Anesthesia/Blood Transfusion Reaction / Comm: No transfusions. Past Psychological History: No Psychological Hx Reported Smoking Status: Never smoker Past Alcohol Use History: Occasional Additional Past Alcohol Use History / Comment(s): once/week at most Past Drug Use History: None Reported - Past Family History Father Family Medical History: Coronary Artery Disease (CAD), Diabetes Mellitus Additional Family Medical History / Comment(s): type 2 DM, cardiac stent placement Mother Family Medical History: Hypertension Surgical - Exam Vital Signs Temp Pulse Resp BP 98 F 77 16 141/88 11/03/21 13:49 11/03/21 13:49 11/03/21 13:49 11/03/21 13:49 - General well developed, well nourished, no distress - Eyes PERRL - ENT normal pinna - Neck no masses - Respiratory normal expansion - Cardiovascular Rhythm: regular - Abdomen Abdomen: soft, non tender Bariatric Assessment & Plan Plan: Status post lap band procedure. Patient's GERD is minimal and will be observed. She'll follow-up in 8 weeks. Bariatric Checklist Checklist: Plan: Checklist: EGD: 1. Hiatal hernia: 2. H. Pylori: HgbA1c: Vitamin D: Smoking: Never smoker Primary care physician referral: madison burden Psychiatry clearance: Cardiology clearance: Sleep study: Diet journal: VTE risk score: VTE risk level: Rehab needs at discharge:
== END ==
LOC: BARWHC3 13:12
PROVIDERS: ATTEND Surgery
DX: Z09 Encounter for follow-up examination after completed treatment for conditions other than malignant neoplasm (principal); Z98.84 Bariatric surgery status; K21.9 Gastro-esophageal reflux disease without esophagitis
CPT/HCPCS: 99211

== ENCOUNTER → 2022-02-10 | Outpatient (CLI) | payer BC ==
--- NOTE | 2022-02-11 10:16 | MM ---
Reason for Exam: Screening (asymptomatic). Last mammogram was performed 1 year(s) and 10 month(s) ago. Patient History: Menarche at age 11. Patient has no children. Last menstrual period: 02/09/2022 Risk Values: Xiao 5 year model risk: 1.0%. NCI Lifetime model risk: 10.3%. Prior Study Comparison: 11/18/2015 Bilateral Screening Mammogram, [facility]. 10/18/2018 Bilateral Screening Mammogram, [facility]. 04/17/2020 Bilateral Screening Mammogram, [facility]. Tissue Density: The breast tissue is heterogeneously dense. This may lower the sensitivity of mammography. Findings: Analyzed By CAD. There is occasional scattered benign-appearing round calcification in both breasts. There is no suspicious group of microcalcifications or new suspicious mass in either breast. Overall Assessment: Benign, BI-RAD 2 Management: Screening Mammogram of both breasts in 1 year. A clinical breast exam by your physician is recommended on an annual basis and results should be correlated with mammographic findings. Some advise annual bilateral breast ultrasound in patient's with background dense tissue. Electronically signed and approved by: Luis Dong M.D.
== END | disposition home or self-care (01) ==
LOC: RADMAMWWP 07:16
PROVIDERS: ATTEND Family Medicine
DX: Z12.31 Encounter for screening mammogram for malignant neoplasm of breast (principal)
CPT/HCPCS: 77067

== ENCOUNTER → 2022-08-17 | Outpatient (CLI) | payer BC ==
[2022-08-17 18:22] LABS: HCT 43.6 % (37.2-46.3); HGB 14.7 g/dL (12.0-15.0); MCHC 33.7 g/dL (32.0-37.0); Mean Platelet Volume 10.2 fL (9.5-12.2); NRBC Per 100 WBC 0 /100 WBCS (0.0-0.0); Platelet Count 330 X 10*3/uL (140-440); RDW 11.8 % (11.5-14.5); WBC 8.92 X 10*3/uL (4.50-10.00)
[2022-08-17 18:58] LABS: ALT 12 U/L (8-44); AST 15 U/L (13-35); Albumin 4.7 g/dL (3.8-4.9); Albumin/Globulin Ratio 2.04 (1.60-3.17); Alkaline Phosphatase 65 U/L (41-126); BUN/Creat Ratio 18.93 Ratio (12.00-20.00); Blood Urea Nitrogen 14.2 mg/dL (9.0-27.0); Calcium 9.7 mg/dL (8.7-10.3); Carbon Dioxide 25.3 mmol/L (20.0-27.5); Chloride 101 mmol/L (96-109); Chol/HDL Ratio 3.97 Ratio; Globulin 2.3 g/dL (1.6-3.3); Glucose 83 mg/dL (70-110); LDL Cholesterol,Calculated 132.1 mg/dL (0.0-131.0); Non-African American GFR(CKD) 94.9 (60.0-200.0); Potassium 3.9 mmol/L (3.5-5.5); Sodium 138 mmol/L (135-145)
== END | disposition home or self-care (01) ==
LOC: LABWHC1 13:15
PROVIDERS: ATTEND Physician Assistant
DX: E03.9 Hypothyroidism, unspecified (principal); R73.02 Impaired glucose tolerance (oral); R07.9 Chest pain, unspecified; R06.00 Dyspnea, unspecified
CPT/HCPCS: 36415; 80053; 80061; 83036; 84439; 84443; 84480; 85027

== ENCOUNTER → 2024-08-01 | Outpatient (CLI) | payer BC ==
--- NOTE | 2024-08-01 15:54 | MM ---
Reason for Exam: Screening (asymptomatic). Last mammogram was performed 2 year(s) and 6 month(s) ago. Patient History: Menarche at age 11. Patient has no children. Premenopausal. 2022, Bilateral Reduction. Risk Values: Xiao 5 year model risk: 1.0%. NCI Lifetime model risk: 10.0%. Prior Study Comparison: 10/18/2018 Bilateral Screening Mammogram, [facility]. 04/17/2020 Bilateral Screening Mammogram, [facility]. 02/10/2022 Bilateral MG screening mammo w CAD, [facility]. Tissue Density: The breasts are heterogeneously dense, which may obscure small masses. Findings: Analyzed By CAD. Interval bilateral breast reductions with a change in the configuration of the patient's breast tissue and areas of asymmetric density. Six-month follow-up is recommended to reassess the areas of asymmetric density. No suspicious calcification is seen. Overall Assessment: Probably benign, BI-RAD 3 Management: Diagnostic Mammogram of both breasts in 6 months. Due to a new appearance of the patient's breast tissue following reduction mammoplasties. Patient should continue monthly self-breast exams. A clinical breast exam by your physician is recommended on an annual basis. This exam should not preclude additional follow-up of suspicious palpable abnormalities. Note on Xiao scores and lifetime risk: 1. A Xiao score greater than 3% is considered moderate risk. If this is the case, consider specialist referral to assess eligibility for a risk reducing agent. 2. If overall lifetime risk for the development of breast cancer is 20% or higher, the patient may qualify for future screening with alternating mammogram and breast MRI. [facility], , 08/01/2024 3:51 PM. Electronically signed and approved by: Elizabeth Hartley M.D. Radiologist
== END | disposition home or self-care (01) ==
LOC: RADMAMWWP 07:11
PROVIDERS: ATTEND Obstetrics & Gynecology Obstetrics
DX: Z12.31 Encounter for screening mammogram for malignant neoplasm of breast (principal); R92.333 Mammographic heterogeneous density, bilateral breasts
CPT/HCPCS: 77067